=== PATIENT | male | born 1945 | race Caucasian/White ===

== ENCOUNTER 2021-05-06 16:10 | Emergency (ER) | payer MEDICARE ==
[~2021-05-06] VITALS: Ht 170.2 cm; Wt 77.1 kg
[2021-05-06] MEDS ORDERED: HYDROCODON-ACE1 EA10 PO (21:57)
--- NOTE | 2021-05-09 21:20 | EKG ---
[facility] [address] [facility] [place], [place] [address] Signed Normal sinus rhythm Left axis deviation Right bundle branch block Septal infarct , age undetermined Abnormal ECG No previous ECGs available Confirmed by MARTINA MULLEN DO ([id number]) on 05/09/2021 9:19:55 PM Electronically Signed By: MARTINA MULLEN DO 05/09/212119 PATIENT NAME: CMRADHASANDRINE Electrocardiogram DATE OF : 47 PHYSICIAN: MARTINA MULLEN DO REPORT #: [id number] REPORT IS CONFIDENTIAL AND NOT TO BE RELEASED WITHOUT AUTHORIZATION
== END 2021-05-06 22:40 | disposition home or self-care (01) ==
LOC: ED 16:10
DX: S22.089A Unspecified fracture of T11-T12 vertebra, initial encounter for closed fracture (principal); S32.019A Unspecified fracture of first lumbar vertebra, initial encounter for closed fracture; S40.022A Contusion of left upper arm, initial encounter; D72.829 Elevated white blood cell count, unspecified; W19.XXXA Unspecified fall, initial encounter; Z88.0 Allergy status to penicillin; Z88.2 Allergy status to sulfonamides; Z88.5 Allergy status to narcotic agent; Z88.1 Allergy status to other antibiotic agents
CPT/HCPCS: 70450; 71045; 72100; 72131; 74177; 80053; 81001; 83690; 83735; 84484; 85025; 93005; 93010; 96374; 96375; 99284-25; J1170; J2405; Q9967